=== PATIENT | male | born 1945 | race Caucasian/White ===

== ENCOUNTER 2024-01-22 12:20 | Inpatient (IN) | payer OTHER ==
[~2024-01-22] VITALS: Ht 177.8 cm; Wt 92.4 kg
[2024-01-22] VITALS (21 sets, daily range): BP systolic 93–125; BP diastolic 41–68; PULSE 24–82; RESP 16–26; O2SAT 85–98
[~2024-01-22 12:20] MED LIST: AMLO1TAB22 PO; APIX5TAB PO; ATOR-507 PO; BUSP5TAB51 PO; FAMO-12 PO; FURO20TA3 PO; ISOS10TA2 PO; LOSA-534 PO; RANO500T3 PO; TAMS0.4C39 PO; TRAM50TA2 PO; VENL1TAB97 PO
[2024-01-22] MEDS: ATROPINE SULF 1 MG/10ml SYR IV ONE (12:35)
[2024-01-22] MEDS: DOPamine 1600MCG/ML D5W 250 ML IV SCH ×2 (12:43→16:05)
[2024-01-22] MEDS: SODIUM CHLORIDE 0.9% 1,000 ML IV ONE (12:45)
[2024-01-22] MEDS: fentaNYL CITRATE 100 MCG/2 ML VL IV ONE (13:06)
[2024-01-22 13:32] LABS: Basophils # (auto) 0.1 10 ^3/uL (0-0.2); Basophils % (auto) 0.5 % (0.0-2.0); Eosinophils # (auto) 0.2 10 ^3/uL (0-0.8); Eosinophils % (auto) 1.7 % (0.0-7.0); Hemoglobin 12.3 g/dL (13.5-17.5); Lymphocytes # (auto) 1.5 10 ^3/uL (0.4-5.4); Lymphocytes % (auto) 11.9 % (10.0-50.0); Mean Corpuscular Hemoglobin 32.5 pg (28.0-32.0); Mean Corpuscular Hgb Conc. 33.3 g/dL (32.0-36.0); Mean Corpuscular Volume 97.5 fL (80.0-100.0); Monocytes # (auto) 1.7 10 ^3/uL (0-1.3); Neutrophils # (auto) 9.4 10 ^3/uL (1.6-8.6); Neutrophils % (auto) 72.9 % (37.0-80.0); Nucleated Red Blood Cells % 0.2 %; Platelet Count (auto) 244 10^3/uL (140-450); Red Blood Cells 3.79 10^6/uL (4.5-5.90); White Blood Cell 12.9 10^3/uL (4.4-10.8)
[2024-01-22 13:49] LABS: Alanine Aminotransferase 83 U/L (7-40); Albumin 3.9 g/dL (3.2-4.8); Alkaline Phosphatase 132 U/L (46-116); Anion Gap 8 (5-15); Aspartate Aminotransferase 43 U/L (13-40); BUN/Creatinine Ratio 31.5 (10.0-20.0); Blood Urea Nitrogen 58 mg/dL (9-23); Calcium 9.3 mg/dL (8.7-10.4); Carbon Dioxide 18 mmol/L (20-31); Chloride 115 mmol/L (98-107); Glucose 154 mg/dL (74-106); Potassium 4.6 mmol/L (3.5-5.1); Sodium 141 mmol/L (136-145)
[2024-01-22 13:50] LABS: Bilirubin, Total 0.7 mg/dL (0.2-1.0); Total Protein 6.4 g/dL (5.7-8.2)
[2024-01-22] MEDS: fentaNYL CITRATE 100 MCG/2 ML VL ONE (13:54)
[2024-01-22] MEDS: ATROPINE SULF 1 MG/10ml SYR ONE (13:54)
[2024-01-22] MEDS: DOPamine 1600MCG/ML D5W 250 ML IV ONE (13:54)
[2024-01-22] MEDS: ATROPINE SULF 0.5 MG/5ML SYR ONE (13:54)
[2024-01-22] MEDS: diphenhdrAMINE HCL 50 MG/1 ML VL IV ONE (14:32)
[2024-01-22] MEDS: ceFAZolin 1GM/50ML 50 ML IV SCH ×2 (14:42→16:07)
[2024-01-22] MEDS ORDERED: NITROGLYCERIN 0.4 MG SL TAB SL PRN ×2 (15:30→16:15)
[2024-01-22] MEDS ORDERED: ACETAMINOPHEN 325 MG TAB PO PRN ×2 (15:30→16:15)
[2024-01-22] MEDS ORDERED: TEMAZEPAM 15 MG CAP PO PRN (15:30)
[2024-01-22] MEDS ORDERED: ONDANSETRON HCL 4 MG/2 ML VIAL IV PRN (15:30)
[2024-01-22] MEDS ORDERED: MORPHINE SULFATE INJ 2 MG/ml SYRG IV PRN ×3 (15:30→16:15)
[2024-01-22] MEDS ORDERED: HYDROcodone-ACET 5/325MG TAB PO PRN ×2 (15:30→16:15)
[2024-01-22 15:34] LABS: INR 1.39 (0.9-1.15); Partial Thromboplastin Time 31.3 SEC (24.5-34.5); Prothrombin Time 14.4 sec (9.3-11.8)
[2024-01-22 15:54] LABS: Magnesium 2.4 mg/dL (1.6-2.6)
[2024-01-22 15:56] LABS: Phosphorus 3.9 mg/dL (2.4-5.1)
[2024-01-22] MEDS: ONDANSETRON HCL 4 MG/2 ML VIAL IV PRN (16:19)
[2024-01-22] MEDS: MORPHINE SULFATE INJ 2 MG/ml SYRG IV PRN (16:20)
[2024-01-22] MEDS: FUROSEMIDE 40 MG/4 ML VIAL IV SCH (17:34)
[2024-01-22] MEDS ORDERED: FUROSEMIDE 40 MG/4 ML VIAL IV SCH (18:00)
[2024-01-22 18:59] LABS: Amphetamine Screen, Urine Neg (NEGATIVE); Barbiturate Scree,Urine Neg (NEGATIVE); Benzodiazephine Screen, Urine Neg (NEGATIVE)
[2024-01-22 19:00] LABS: Cannabinoid Screen, Urine Neg (NEGATIVE); Cocaine Screen, Urine Neg (NEGATIVE); Opiate Scree,Urine Neg (NEGATIVE); Phencyclidine Screen, Urine Neg (NEGATIVE)
[2024-01-22 19:16] LABS: Urine Bacteria FEW /hpf (None Seen); Urine Blood Negative /uL (Negative); Urine Clarity Turbid (Clear); Urine Color Light-Yellow (Yellow); Urine Hyaline Cast FEW /lpf (0 - 2); Urine Protein, UAD TRACE (Negative); Urine Specific Gravity 1.013 (1.001-1.035); Urine Urobilinogen Normal (Negative); Urine WBC 2 /hpf (0 - 3)
[2024-01-23] VITALS (46 sets, daily range): BP systolic 97–136; BP diastolic 38–96; PULSE 42–81; RESP 15–24; TEMP 98–99.2; O2SAT 92–99
[2024-01-23 04:19] LABS: Basophils # (auto) 0.1 10 ^3/uL (0-0.2); Basophils % (auto) 0.7 % (0.0-2.0); Eosinophils # (auto) 0.2 10 ^3/uL (0-0.8); Eosinophils % (auto) 1.6 % (0.0-7.0); Hematocrit 36.7 % (41.0-53.0); Hemoglobin 12.5 g/dL (13.5-17.5); Lymphocytes # (auto) 1.1 10 ^3/uL (0.4-5.4); Lymphocytes % (auto) 8.9 % (10.0-50.0); Mean Corpuscular Hemoglobin 32.8 pg (28.0-32.0); Mean Corpuscular Volume 96.4 fL (80.0-100.0); Monocytes # (auto) 1.4 10 ^3/uL (0-1.3); Monocytes % (auto) 11.3 % (0.0-12.0); Neutrophils # (auto) 9.5 10 ^3/uL (1.6-8.6); Neutrophils % (auto) 77.5 % (37.0-80.0); Nucleated Red Blood Cells % 0.1 %; Platelet Count (auto) 216 10^3/uL (140-450); Red Cell Distribution Width 14.9 % (11.8-14.3); White Blood Cell 12.3 10^3/uL (4.4-10.8)
[2024-01-23 04:43] LABS: Alanine Aminotransferase 67 U/L (7-40); Albumin 3.9 g/dL (3.2-4.8); Alkaline Phosphatase 122 U/L (46-116); Anion Gap 7 (5-15); Aspartate Aminotransferase 29 U/L (13-40); BUN/Creatinine Ratio 22.4 (10.0-20.0); Calcium 9.3 mg/dL (8.7-10.4); Carbon Dioxide 24 mmol/L (20-31); Chloride 114 mmol/L (98-107); Glucose 113 mg/dL (74-106); Potassium 3.9 mmol/L (3.5-5.1); Sodium 145 mmol/L (136-145)
[2024-01-23 04:44] LABS: Bilirubin, Total 0.8 mg/dL (0.2-1.0); Total Protein 6.6 g/dL (5.7-8.2)
[2024-01-23 04:45] LABS: Blood Urea Nitrogen 33 mg/dL (9-23)
[2024-01-23] MEDS: fentaNYL CITRATE 100 MCG/2 ML VL ONE (10:17)
[2024-01-23] MEDS: VANCOMYCIN HCL 1000 MG VL ONE ×2 (10:17→12:23)
[2024-01-23] MEDS: MIDAZOLAM HCL 2MG/2ML 2ml VIAL (1mg/ml) ONE (10:17)
[2024-01-23] MEDS: LIDOCAINE 2%HCL (LOCAL ANESTH.) INJ 20ML MDV ONE ×2 (10:18→11:26)
[2024-01-23] MEDS: VANCOMYCIN 1GM/200ML PREMIX 200 ML IV ONE (10:18)
[2024-01-23] MEDS: IODIXANOL 320MG/ML 100ML BTL IV ONE (10:48)
[2024-01-23] MEDS ORDERED: PNEUMOCOCCAL VACC POLYS 25 MCG/0.5 ML VIAL IM ONE (20:00)
[2024-01-24] VITALS (8 sets, daily range): BP systolic 111–160; BP diastolic 48–72; PULSE 67–77; RESP 18–24; TEMP 97.8–98.4; O2SAT 94–98
[2024-01-24] MEDS: VANCOMYCIN 1GM/200ML PREMIX 200 ML IV SCH (00:43)
[2024-01-24] MEDS: TEMAZEPAM 15 MG CAP PO PRN (01:09)
[2024-01-24] MEDS ORDERED: ACETAMINOPHEN 325 MG TAB PO PRN (10:30)
[2024-01-24] MEDS ORDERED: HYDROcodone-ACET 5/325MG TAB PO PRN (10:30)
[2024-01-24] MEDS: DOXYCYCLINE 100 MG TAB/CAP PO ONE (11:29)
[2024-01-24 12:02] LABS: Basophils # (auto) 0 10 ^3/uL (0-0.2); Basophils % (auto) 0.4 % (0.0-2.0); Eosinophils # (auto) 0.2 10 ^3/uL (0-0.8); Hematocrit 38.6 % (41.0-53.0); Hemoglobin 12.9 g/dL (13.5-17.5); Lymphocytes # (auto) 1.4 10 ^3/uL (0.4-5.4); Lymphocytes % (auto) 13.2 % (10.0-50.0); Mean Corpuscular Hemoglobin 32.5 pg (28.0-32.0); Mean Corpuscular Hgb Conc. 33.5 g/dL (32.0-36.0); Mean Corpuscular Volume 96.9 fL (80.0-100.0); Monocytes # (auto) 1.5 10 ^3/uL (0-1.3); Monocytes % (auto) 13.6 % (0.0-12.0); Neutrophils # (auto) 7.8 10 ^3/uL (1.6-8.6); Neutrophils % (auto) 70.8 % (37.0-80.0); Platelet Count (auto) 213 10^3/uL (140-450); Red Blood Cells 3.98 10^6/uL (4.5-5.90); Red Cell Distribution Width 15.7 % (11.8-14.3)
[2024-01-24 12:33] LABS: Alanine Aminotransferase 66 U/L (7-40); Alkaline Phosphatase 122 U/L (46-116); Anion Gap 8 (5-15); Aspartate Aminotransferase 39 U/L (13-40); BUN/Creatinine Ratio 21.5 (10.0-20.0); Blood Urea Nitrogen 28 mg/dL (9-23); Calcium 9.6 mg/dL (8.7-10.4); Carbon Dioxide 28 mmol/L (20-31); Chloride 109 mmol/L (98-107); Glucose 130 mg/dL (74-106); Magnesium 1.9 mg/dL (1.6-2.6); Potassium 3.8 mmol/L (3.5-5.1); Sodium 145 mmol/L (136-145)
[2024-01-24 12:34] LABS: Phosphorus 2.9 mg/dL (2.4-5.1); Total Protein 6.9 g/dL (5.7-8.2)
[2024-01-24] MEDS: HYDROcodone-ACET 10/325MG TAB PO PRN (15:55)
[2024-01-24 16:34] LABS: Phosphorus 2.8 mg/dL (2.4-5.1)
[2024-01-24] MEDS: FUROSEMIDE 40 MG TAB PO SCH (18:36)
[2024-01-24] MEDS: DOXYCYCLINE 100 MG TAB/CAP PO SCH (21:57)
[2024-01-25] VITALS (7 sets, daily range): BP systolic 124–150; BP diastolic 67–81; PULSE 64–71; RESP 18–20; TEMP 98–98.5; O2SAT 99
[2024-01-25 11:33] LABS: Basophils # (auto) 0.1 10 ^3/uL (0-0.2); Basophils % (auto) 0.5 % (0.0-2.0); Eosinophils # (auto) 0.3 10 ^3/uL (0-0.8); Eosinophils % (auto) 2.5 % (0.0-7.0); Hemoglobin 13.4 g/dL (13.5-17.5); Lymphocytes # (auto) 1.4 10 ^3/uL (0.4-5.4); Lymphocytes % (auto) 13.7 % (10.0-50.0); Mean Corpuscular Hemoglobin 32.2 pg (28.0-32.0); Mean Corpuscular Hgb Conc. 33.5 g/dL (32.0-36.0); Mean Corpuscular Volume 96.1 fL (80.0-100.0); Monocytes # (auto) 1.3 10 ^3/uL (0-1.3); Neutrophils # (auto) 7.5 10 ^3/uL (1.6-8.6); Neutrophils % (auto) 71.3 % (37.0-80.0); Platelet Count (auto) 202 10^3/uL (140-450); Red Blood Cells 4.17 10^6/uL (4.5-5.90); Red Cell Distribution Width 15.3 % (11.8-14.3); White Blood Cell 10.5 10^3/uL (4.4-10.8)
[2024-01-25 12:07] LABS: Alanine Aminotransferase 66 U/L (7-40); Albumin 3.9 g/dL (3.2-4.8); Alkaline Phosphatase 115 U/L (46-116); Anion Gap 6 (5-15); Aspartate Aminotransferase 41 U/L (13-40); BUN/Creatinine Ratio 23.3 (10.0-20.0); Blood Urea Nitrogen 24 mg/dL (9-23); Calcium 9.4 mg/dL (8.7-10.4); Carbon Dioxide 31 mmol/L (20-31); Chloride 106 mmol/L (98-107); Glucose 129 mg/dL (74-106); Potassium 3.6 mmol/L (3.5-5.1); Sodium 143 mmol/L (136-145)
[2024-01-25 12:09] LABS: Bilirubin, Total 1.1 mg/dL (0.2-1.0); Total Protein 6.7 g/dL (5.7-8.2)
[2024-01-25 12:20] LABS: Hepatitis B Surface Antigen Negative (Negative)
[2024-01-25 12:41] LABS: Hepatitis C Antibody Negative (Negative)
== END 2024-01-25 19:20 | DRG 242 ==
LOC: EDUNIT# 12:20 → EDBD 12:20 → ER 12:25 → TELE 15:21 → ER 15:23 → TELE-WESTW 01-23 18:00
PROVIDERS: ADMIT Student in an Organized Health Care Education/Training Program; ATTEND Student in an Organized Health Care Education/Training Program
PROC: 0JH606Z Insertion of Pacemaker, Dual Chamber into Chest Subcutaneous Tissue and Fascia, Open Approach (ICD-10-PCS; principal; 2024-01-23)
PROC: 02H63JZ Insertion of Pacemaker Lead into Right Atrium, Percutaneous Approach (ICD-10-PCS; 2024-01-23)
PROC: 02HK3JZ Insertion of Pacemaker Lead into Right Ventricle, Percutaneous Approach (ICD-10-PCS; 2024-01-23)
PROC: B5171ZZ Fluoroscopy of Left Subclavian Vein using Low Osmolar Contrast (ICD-10-PCS; 2024-01-23)
PROC: B51N1ZZ Fluoroscopy of Left Upper Extremity Veins using Low Osmolar Contrast (ICD-10-PCS; 2024-01-23)
DX: I44.2 Atrioventricular block, complete (principal); I50.21 Acute systolic (congestive) heart failure; J96.00 Acute respiratory failure, unspecified whether with hypoxia or hypercapnia; N17.9 Acute kidney failure, unspecified; I13.0 Hypertensive heart and chronic kidney disease with heart failure and stage 1 through stage 4 chronic kidney disease, or unspecified chronic kidney disease; F03.90 Unspecified dementia, unspecified severity, without behavioral disturbance, psychotic disturbance, mood disturbance, and anxiety; N40.0 Benign prostatic hyperplasia without lower urinary tract symptoms; J44.9 Chronic obstructive pulmonary disease, unspecified; I35.0 Nonrheumatic aortic (valve) stenosis; N18.9 Chronic kidney disease, unspecified; F10.10 Alcohol abuse, uncomplicated; Z95.2 Presence of prosthetic heart valve; Z86.74 Personal history of sudden cardiac arrest; Z87.891 Personal history of nicotine dependence; Y90.9 Presence of alcohol in blood, level not specified
CPT/HCPCS: 33208; 36415; 36556; 71045; 76775; 80053; 80061; 80307; 81001; 82140; 82306; 82607; 83036; 83605; 83735; 83880; 83970; 84100; 84443; 84484; 85025; 85610; 85730; 86803; 87040; 87340; 93005; 93306; 96361; 96365; 96375; 97110; 97116; 97163; 99152; 99291; 99292; G0378; J0461; J2250; J2405; Q9967

== ENCOUNTER 2024-10-02 00:44 | Emergency (ER) | payer OTHER ==
[~2024-10-02] VITALS: Ht 175.3 cm; Wt 90.9 kg
[2024-10-02 01:20] LABS: Chloride 106 mmol/L (98-107); Potassium 4.3 mmol/L (3.5-5.1); Sodium 140 mmol/L (136-145)
[2024-10-02 01:21] LABS: Anion Gap 8 (5-15); Calcium 9.2 mg/dL (8.7-10.4); Carbon Dioxide 26 mmol/L (20-31)
[2024-10-02 01:25] LABS: Hematocrit 45.6 % (41.0-53.0); Hemoglobin 15.5 g/dL (13.5-17.5); Mean Corpuscular Hemoglobin 32.3 pg (28.0-32.0); Mean Corpuscular Volume 95.1 fL (80.0-100.0); Nucleated Red Blood Cells % 0.0 %
[2024-10-02 01:26] LABS: BUN/Creatinine Ratio 18.5 (10.0-20.0); Blood Urea Nitrogen 20 mg/dL (9-23)
[2024-10-02 01:31] LABS: Glucose 130 mg/dL (74-106)
--- NOTE | 2024-10-02 01:40 | DVH ---
CHEST RADIOGRAPH Indication: chest pain Technique: Single frontal view of the chest was obtained COMPARISON: XY CHEST XRAY 1 VIEW on DOS: 01/24/24, XY CHEST PORTABLE on DOS: 01/23/24, XY CHEST XRAY 1 VIEW on DOS: 01/23/24, XY CHEST PORTABLE on DOS: 01/22/24 FINDINGS: Lines and Tubes: None. Left anterior chest wall dual lead cardiac pacing device. Lungs: Clear. Moderate right hemidiaphragmatic elevation. Pleura: No effusion. No pneumothorax. Cardiomediastinal contours: Cardiomegaly. Bones: Unremarkable. Hardware within the cervical spine and right glenohumeral joint. IMPRESSION: 1. No acute disease. Cardiomegaly.
--- NOTE | 2024-10-02 01:50 | ED.PDOC ---
History of Present Illness HPI Comments 79 y/o M is BIBA for 4x hour history of nonradiating, left sided chest pain. Per EMS report, patient endorses on sudden and unprovoked onset of constant, 8/10 pain, last night. Significant history of aortic stenosis s/p TAVR, acute respiratory failure, JYOTI, CHF, COPD, complete heart block, pulmonary hyperten jovanna, pacemaker, and PTCA. Patient was given ASA and NTG en route, with improvement of pain to a 4/10. Patient denies any shortness of breath, nausea, vomiting, dizziness, arm pain, fever, chills, or further associated symptoms. Chief Complaint: Chest Pain Time Seen by MD: 00:50 Reviewed Notes: Nurses Notes, Dispatch Associate Notes, Medications, Allergies Allergies: Coded Allergies: NO KNOWN ALLERGIES (Unverified , 01/22/24) Home Meds Reported Medications Tramadol Hcl (Tramadol Hcl) 50 Mg Tab, 1 TAB PO Q8HR for 30 Days, #90 01/23/24 Losartan Potassium (Losartan Potassium) 50 Mg Tab, 1 TAB PO DAILY for 100 Days, #100 01/23/24 Buspirone Hcl (Buspirone Hcl) 5 Mg Tab, 1 TAB PO BID for 90 Days, #180 01/23/24 Venlafaxine Hydrochloride (Venlafaxine Hcl) 37.5 Mg Tab, 1 TAB PO BID for 100 Days, #200 01/23/24 Furosemide (Furosemide) 20 Mg Tab, 1 TAB PO DAILY for 100 Days, #100 01/23/24 Amlodipine Besylate (Amlodipine Besylate) 5 Mg Tab, 1 TAB PO DAILY for 100 Days, #100 01/23/24 Apixaban Base (ELIQUIS) 5 Mg Tab, 1 TAB PO BID for 30 Days, #60 01/23/24 Ranolazine (Ranolazine ER) 500 Mg Tab, 1 TAB PO BID for 100 Days, #200 01/23/24 Tamsulosin Hcl (Tamsulosin Hcl) 0.4 Mg Cap, 1 CAP PO DAILY for 100 Days, #100 01/23/24 Isosorbide Dinitrate (Isosorbide Dinitrate) 10 Mg Tab, 1 TAB PO DAILY for 90 Days, #90 01/23/24 Famotidine (Famotidine) 20 Mg Tab, 1 TAB PO BID for 30 Days, #60 01/23/24 Atorvastatin Calcium (Lipitor) 40 Mg Tab, 1 TAB PO DAILY for 100 Days, #100 01/23/24 Information Source: Patient, Emergency Med Personnel Mode of Arrival: Ambulatory Severity: Moderate Timing: Hours Duration: Since onset Prehospital treatment: 12 Lead EKG, ASA, Power Regulator, NTG Past Medical History PAST MEDICAL HISTORY: CHF, COPD Past Medical History (Other): aortic stenosis s/p TAVR acute respiratory failure JYOTI, complete heart block pulmonary hypertension Surgical History: Pacemaker, PTCA Family History Family History: Unknown Social History Smoker: Non-Smoker Alcohol: Denies ETOH Use Drugs: Denies Drug Use Lives In: Home All Other Systems: Reviewed and Negative (Comprehensive systems review obtained and negative except for what is stated in the HPI.) Physical Exam General Appearance: No Apparent Distress, Normal, Other (ill appearing ) HEENT: Normal ENT Inspection, Pharynx Normal, TMs Normal Neck: Full Range of Motion, Non-Tender, Normal, Normal Inspection Respiratory: Chest Non-Tender, Lungs Clear, No Accessory Muscle Use, No Respiratory Distress, Normal Breath Sounds Cardiovascular: No Edema, No JVD, No Murmur, No Gallop, Normal Peripheral Pulses, Regular Rate/Rhythm Breast Exam: Deferred Gastrointestinal: No Organomegaly, Non Tender, No Pulsatile Mass, Normal Bowel Sounds, Soft Genitalia: Deferred Pelvic: Deferred Rectal: Deferred Extremities: No calf tenderness, Normal capillary refill, Normal inspection, Normal range of motion, Non-tender, No pedal edema Musculoskeletal : Apperance: Normal Neurologic: Alert, flatwork washer II-XII nml as Tested, No Motor Deficits, Normal Affect, Normal Mood, No Sensory Deficits Cerebellar Function: Normal Reflexes: Normal Skin: Dry, Normal Color, Warm Lymphatic: No Adenopathy Was a procedure done? Was a procedure done?: No EKG EKG : Pulse Rate (adult): 92 [place]: Normal Cardiac Rhythm: Paced (ventricularly) Block: None Hypertrophy: None ST: Normal Differential Dx Considerations may include: [place], PE, ACS, URI, PNA, viral syndrome, among others X-Ray, Labs, Meds, VS Vital Signs Date Time Temp Pulse Resp B/P (MAP) Pulse Ox O2 Delivery O2 Flow Rate FiO2 10/02/24 01:50 92 10/02/24 01:39 70 10/02/24 01:00 98.4 90 18 123/74 (90) 95 98.4 10/02/24 00:47 70 Lab Test 10/02/24 02:06 10/02/24 01:01 Range/Units Troponin I High Sensitivity Pending 46 </=54 ng/L White Blood Count 8.7 4.4-10.8 10^3/uL Red Blood Count 4.79 4.5-5.90 10^6/uL Hemoglobin 15.5 13.5-17.5 g/dL Hematocrit 45.6 41.0-53.0 % Mean Corpuscular Volume 95.1 80.0-100.0 fL Mean Corpuscular Hemoglobin 32.3 H 28.0-32.0 pg Mean Corpuscular Hemoglobin Concent 34.0 32.0-36.0 g/dL Red Cell Distribution Width 13.8 11.8-14.3 % Platelet Count 168 140-450 10^3/uL Mean Platelet Volume 7.5 6.9-10.8 fL Neutrophils (%) (Auto) 56.9 37.0-80.0 % Lymphocytes (%) (Auto) 25.6 10.0-50.0 % Monocytes (%) (Auto) 13.2 H 0.0-12.0 % Eosinophils (%) (Auto) 3.3 0.0-7.0 % Basophils (%) (Auto) 1.0 0.0-2.0 % Neutrophils # (Auto) 5.0 1.6-8.6 10 ^3/uL Lymphocytes # (Auto) 2.2 0.4-5.4 10 ^3/uL Monocytes # (Auto) 1.1 0-1.3 10 ^3/uL Eosinophils # (Auto) 0.3 0-0.8 10 ^3/uL Basophils # (Auto) 0.1 0-0.2 10 ^3/uL Nucleated Red Blood Cells 0.0 % Sodium Level 140 136-145 mmol/L Potassium Level 4.3 3.5-5.1 mmol/L Chloride Level 106 98-107 mmol/L Carbon Dioxide Level 26 20-31 mmol/L Anion Gap 8 5-15 Blood Urea Nitrogen 20 9-23 mg/dL Creatinine 1.08 0.700-1.30 mg/dL Glomerular Filtration Rate Calc 69 >90 mL/min BUN/Creatinine Ratio 18.5 10.0-20.0 Serum Glucose 130 H 74-106 mg/dL Calcium Level 9.2 8.7-10.4 mg/dL B-Type Natriuretic Peptide 311.03 0-100 pg/mL [address] [address] Ph: [phone] DIAGNOSTIC IMAGING Diagnostic Imaging Report : [id number] Signed PATIENT: MARIA R ZAPATA ACCT: [id number] UNIT: [id number] : 1945 LOC: ER ROOM / BED: / AGE / SEX: 79 / M ADM STATUS: REG ER SERVICE ORDERING PHYSICIAN: CRISTIAN ALBRECHT MD PROCEDURE(s): CXRP - CHEST PORTABLE REASON: chest pain ORDER NUMBER(s): [id number], ACCESSION NUMBER(s): [id number] CHEST RADIOGRAPH Indication: chest pain Technique: Single frontal view of the chest was obtained COMPARISON: XY CHEST XRAY 1 VIEW on DOS: 01/24/24, XY CHEST PORTABLE on DOS: 01/23/24, XY CHEST XRAY 1 VIEW on DOS: 01/23/24, XY CHEST PORTABLE on DOS: 01/22/24 FINDINGS: Lines and Tubes: None. Left anterior chest wall dual lead cardiac pacing device. Lungs: Clear. Moderate right hemidiaphragmatic elevation. Pleura: No effusion. No pneumothorax. Cardiomediastinal contours: Cardiomegaly. Bones: Unremarkable. Hardware within the cervical spine and right glenohumeral joint. IMPRESSION: 1. No acute disease. Cardiomegaly. ATED BY: OSEI BROWN MD DICTATED DATE/TIME: 10/02/24136 SIGNED BY: OSEI BROWN MD SIGNED DATE/TIME: 10/02/24136 CC: Time of 1ST Reevaluation: 01:20 Reevaluation 1ST: Unchanged Patient Education/Counseling: Diagnosis, Treatment Family Education/Counseling: No Family Present Additional Information Previous visits reviewed: January 21, 2025 encounter for heart block The following tests were ordered, and results were reviewed by me: CXR, EKG, CBC, BNP, BMP, troponin Additional Information was gathered from interviewing the following independent historians: EMS I reviewed and agreed with the following test results read by other providers: CXR I discussed treatment and results with medical personnel and: patient SEPSIS Sepsis Screen Date sepsis recognized/suspect: Oct 02, 2024 Time Sepsis recognized/suspect: 010 Recent Procedure: No On Antibiotic Therapy: No Respiratory Rate >20: No Heart Rate >90: No Temp<36 C (96.8 F) or >38.3 C: No SBP <90 or MAP <65 mmHG: No New Acute Mental Status Change: No Is the patient on CPAP, BIPAP,: No Physician Orders Chest Portable (10/02/24 00:55) Electrocardigram (10/02/24 00:55) Troponin-I Hs (10/02/24 01:55) Troponin-I Hs (10/02/24 03:55) Electrocardigram (10/02/24 01:55) Electrocardigram (10/02/24 03:55) Vital Signs Date Time Temp Pulse Resp B/P (MAP) Pulse Ox O2 Delivery O2 Flow Rate FiO2 10/02/24 01:50 92 10/02/24 01:39 70 10/02/24 01:00 98.4 90 18 123/74 (90) 95 98.4 10/02/24 00:47 70 Laboratory Tests Test 10/02/24 01:01 White Blood Count 8.7 10^3/uL (4.4-10.8) Departure 1 Departure Time of Disposition: 02:38 (Patient presented with chest pain that was concerning for possible STEMI, ACS, PE, Pneumonia, Muscle Strain, COPD, Dissection. Data: 1. I ordered and reviewed the result of at least 3 labs including a CBC, BMP, and Troponin. 2. I independently interpreted the following tests: EKG which shows paced rhythm and Chest X-ray which shows benign chest.Risk:This patient has a high risk of morbidity due to further diagnostic testing or treatment and may suffer from an acute cardiac or respiratory disorder. Workup reveals concern for ACS and patient should be admitted for further workup and possible expert consultation. ) Impression: Primary Impression: Acute chest pain Disposition: ADMITTED INPATIENT Admit to: Med Surg Condition: Guarded Critical Care Note Critical Care Time?: Yes Critical care comment: Acute chest pain Authorized and Performed by: Cristian Albrecht MD Total critical care time: Approximately 38 minutes Due to a high probability of clinically significant, life threatening deterioration, the patient required my highest level of preparedness to interve ne emergently and I personally spent this critical care time directly and personally managing the patient. This critical care time included obtaining a history; examining the patient; pulse oximetry; ordering and review of studies; arranging urgent treatment with development of a management plan; evaluation of patient's response to treatment; frequent reassessment; and, discussions with other providers. This critical care time was performed to assess and manage the high probability of imminent, life-threatening deterioration that could result in multi-organ failure. It was exclusive of separately billable procedures and treating other patients and teaching time. Please see my other sections and the rest of the note for further information on patient assessment and treatment. Stability Stability form required: No Heart Score Heart Score: Heart Score Response (Comments) Value History Moderate Suspicious 1 EKG Normal 0 Age >65 2 Risk Factors >3 or Hx ASHD 2 Troponin Normal limit 0 Total 5 I personally scribed for CRISTIAN ALBRECHT MD ([email or web address]) on 10/02/24 at 01:50. Electronically submitted by Robert Paez [email or web address]). CRISTIAN ALBRECHT MD Oct 02, 2024 01:50
[2024-10-02] MEDS: NITROGLYCERIN 0.4 MG SL TAB SL ONE (03:33)
[2024-10-02] MEDS: SODIUM CHLORIDE 0.9% 1,000 ML IV ONE ×2 (04:00→04:41)
[2024-10-02] MEDS: MAALOX PLUS or MAALOX 30 ML PO ONE (04:15)
[2024-10-02] MEDS: ISOSORBIDE DINITRATE 10 MG TAB PO ONE (05:43)
--- NOTE | 2024-10-02 06:15 | ECG ---
[facility] Test Date: 2024-10-02 Test Time: 03:46:13 Pat Name: MARIA R ZAPATA Department: ED Room: Gender: M Programming Engineer: ANITA : 1945 Requested By: CRISTIAN MENESES Order Number: [id number] Reading MD: Nik Casanova Measurements Intervals [place] Rate: 70 P: 0 RI: 191 QRS: -85 QRSD: 158 T: 84 QT: 442 QTc: 477 Interpretive Statements A-V dual-paced complexes w/ some inhibition No further analysis attempted due to paced rhythm Baseline wander in lead(s) I,III,aVL Electronically Signed On 10-04-2024 9:53:27 PDT by Nik Casanova Please click the below link to view image of tracing.
--- NOTE | 2024-10-02 06:15 | ECG ---
[facility] Test Date: 2024-10-02 Test Time: 01:39:23 Pat Name: MARIA R ZAPATA Department: ED Room: Gender: M Director Sales Training: ANITA : 1945 Requested By: CRISTIAN MENESES Order Number: [id number] Reading MD: Nik Casanova Measurements Intervals [place] Rate: 70 P: 0 CO: 187 QRS: 265 QRSD: 160 T: 69 QT: 461 QTc: 498 Interpretive Statements Atrial-ventricular dual-paced complexes No further rhythm analysis attempted due to paced rhythm Nonspecific IVCD with LAD Electronically Signed On 10-04-2024 9:52:36 PDT by Nik Casanova Please click the below link to view image of tracing.
[2024-10-02 07:38] VITALS: TEMP 98.2
[2024-10-02 08:00] VITALS: PULSE 70; RESP 17; O2SAT 94
--- NOTE | 2024-10-02 08:29 | ECG ---
[facility] Test Date: 2024-10-02 Test Time: 00:47:05 Pat Name: MARIA R ZAPATA Department: ED Room: Gender: M All Terrain Vehicle Technician: kathy : 1945 Requested By: CRISTIAN MENESES Order Number: [id number] Reading MD: Nik Casanova Measurements Intervals [place] Rate: 70 P: -3 FL: 192 QRS: -83 QRSD: 163 T: 87 QT: 461 QTc: 498 Interpretive Statements Sinus rhythm Nonspecific IVCD with LAD LVH with secondary repolarization abnormality Inferior infarct, acute (RCA) Anterolateral infarct, old Probable RV involvement, suggest recording right precordial leads Electronically Signed On 10-04-2024 9:52:05 PDT by Nik Casanova Please click the below link to view image of tracing.
[2024-10-02] MEDS: FUROSEMIDE 20 MG/2 ML VIAL IV ONE (08:57)
[2024-10-02] MEDS: ONDANSETRON HCL 4 MG/2 ML VIAL IV PRN (08:58)
[2024-10-02] MEDS: RANOLAZINE ER 500 MG TAB PO SCH (09:01)
[2024-10-02] MEDS: MORPHINE SULFATE INJ 2 MG/ml SYRG IV PRN (09:04)
[2024-10-02] MEDS: HYDROcodone-ACET 10/325MG TAB PO ONE (10:25)
[2024-10-02] MEDS: FAMOTIDINE (10MG/ML) 2ML VL IV ONE (10:25)
[2024-10-02 17:00] VITALS: BP 141/66; PULSE 70; RESP 18; O2SAT 96
[2024-10-02] MEDS ORDERED: TRAM50TA2 PO (17:15)
--- NOTE | 2024-10-02 17:16 | DVHDS2 ---
Discharge Summary Date of Admission Date of Discharge: Oct 02, 2024 Labs/Diagnostic Data: Laboratory Results Test 10/02/24 04:06 10/02/24 01:01 Troponin I High Sensitivity 45 ng/L (</=54) White Blood Count 8.7 10^3/uL (4.4-10.8) Red Blood Count 4.79 10^6/uL (4.5-5.90) Hemoglobin 15.5 g/dL (13.5-17.5) Hematocrit 45.6 % (41.0-53.0) Mean Corpuscular Volume 95.1 fL (80.0-100.0) Mean Corpuscular Hemoglobin 32.3 pg (28.0-32.0) Mean Corpuscular Hemoglobin Concent 34.0 g/dL (32.0-36.0) Red Cell Distribution Width 13.8 % (11.8-14.3) Platelet Count 168 10^3/uL (140-450) Mean Platelet Volume 7.5 fL (6.9-10.8) Neutrophils (%) (Auto) 56.9 % (37.0-80.0) Lymphocytes (%) (Auto) 25.6 % (10.0-50.0) Monocytes (%) (Auto) 13.2 % (0.0-12.0) Eosinophils (%) (Auto) 3.3 % (0.0-7.0) Basophils (%) (Auto) 1.0 % (0.0-2.0) Neutrophils # (Auto) 5.0 10 ^3/uL (1.6-8.6) Lymphocytes # (Auto) 2.2 10 ^3/uL (0.4-5.4) Monocytes # (Auto) 1.1 10 ^3/uL (0-1.3) Eosinophils # (Auto) 0.3 10 ^3/uL (0-0.8) Basophils # (Auto) 0.1 10 ^3/uL (0-0.2) Nucleated Red Blood Cells 0.0 % Sodium Level 140 mmol/L (136-145) Potassium Level 4.3 mmol/L (3.5-5.1) Chloride Level 106 mmol/L (98-107) Carbon Dioxide Level 26 mmol/L (20-31) Anion Gap 8 (5-15) Blood Urea Nitrogen 20 mg/dL (9-23) Creatinine 1.08 mg/dL (0.700-1.30) Glomerular Filtration Rate Calc 69 mL/min (>90) BUN/Creatinine Ratio 18.5 (10.0-20.0) Serum Glucose 130 mg/dL (74-106) Calcium Level 9.2 mg/dL (8.7-10.4) B-Type Natriuretic Peptide 311.03 pg/mL (0-100) Other Laboratory Tests 10/02/24 01:01 Final Diagnosis/Problems List Musculoskeletal Chest Pain Discharge Disposition: Home Discharge Instruct/Medications Diet: Cardiac 2g Na,low cholest Activity: No Restrictions, As Tolerated Medications: Tramadol refilled for pain. Follow up with pain management for further medications. Scheduled Amlodipine Besylate (Amlodipine Besylate), 1 TAB PO DAILY, (Reported) Apixaban Base (Eliquis), 1 TAB PO BID, (Reported) Atorvastatin Calcium (Lipitor), 1 TAB PO DAILY, (Reported) Buspirone Hcl (Buspirone Hcl), 1 TAB PO BID, (Reported) Famotidine (Famotidine), 1 TAB PO BID, (Reported) Furosemide (Furosemide), 1 TAB PO DAILY, (Reported) Isosorbide Dinitrate (Isosorbide Dinitrate), 1 TAB PO DAILY, (Reported) Losartan Potassium (Losartan Potassium), 1 TAB PO DAILY, (Reported) Ranolazine (Ranolazine ER), 1 TAB PO BID, (Reported) Tamsulosin Hcl (Tamsulosin Hcl), 1 CAP PO DAILY, (Reported) Tramadol Hcl (Tramadol Hcl), 1 TAB PO Q8HR, (Reported) Venlafaxine Hydrochloride (Venlafaxine Hcl), 1 TAB PO BID, (Reported) Scheduled PRN Tramadol Hcl (Tramadol Hcl), 50 MG PO Q6HP PRN Discharge Statement: "Patient was advised to return to the ER or call 911 if any headaches, dizziness, shortness of breath, chest pain, abdominal pain, bleeding, fevers, or worsening of medical condition. Patient was counseled about treatment plan, medications, possible side effects, patientverbalized understanding. All questions were answered to the best of my ability. This discharge took greater then 30 minutes in planning, reviewing documentation, counseling the patient, and discussing with other team members." ASSESSMENT ASSESSMENT Assessment Musculoskeletal Chest Pain BETTINA ODELL DO Oct 02, 2024 17:16
--- NOTE | 2024-10-02 22:12 | DVHINCON2 ---
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 Per EMS report, patient endorses on sudden and unprovoked onset of constant, 8/10 pain, last night. Patient was given Aspirin and Nitro en route, with improvement of pain to a 4/10. Troponin 46 > 44 > 45. Chest x-ray shows cardiomegaly. EKG shows ventricularly paced rhythm at 92. Patient was admitted to the hospital. I am asked to consult on this patient. Family History: FH: dementia G8 MOTHER, Onset:Unknown G8 SISTER, Onset:Unknown FH: heart attack G8 FATHER, Onset:Unknown G8 BROTHER, Onset:Unknown Allergies: Coded Allergies: NO KNOWN ALLERGIES (Unverified , 01/22/24) Home Meds Active Scripts Tramadol Hcl (Tramadol Hcl) 50 Mg Tab, 50 MG PO Q6HP PRN, #15 TAB 0 Refills Take for severe chest pain. Prov:BETTINA ODELL DO 10/02/24 Reported Medications Tramadol Hcl (Tramadol Hcl) 50 Mg Tab, 1 TAB PO Q8HR for 30 Days, #90 01/23/24 Losartan Potassium (Losartan Potassium) 50 Mg Tab, 1 TAB PO DAILY for 100 Days, #100 01/23/24 Buspirone Hcl (Buspirone Hcl) 5 Mg Tab, 1 TAB PO BID for 90 Days, #180 01/23/24 Venlafaxine Hydrochloride (Venlafaxine Hcl) 37.5 Mg Tab, 1 TAB PO BID for 100 Days, #200 01/23/24 Furosemide (Furosemide) 20 Mg Tab, 1 TAB PO DAILY for 100 Days, #100 01/23/24 Amlodipine Besylate (Amlodipine Besylate) 5 Mg Tab, 1 TAB PO DAILY for 100 Days, #100 01/23/24 Apixaban Base (ELIQUIS) 5 Mg Tab, 1 TAB PO BID for 30 Days, #60 01/23/24 Ranolazine (Ranolazine ER) 500 Mg Tab, 1 TAB PO BID for 100 Days, #200 10/22/24 Tamsulosin Hcl (Tamsulosin Hcl) 0.4 Mg Cap, 1 CAP PO DAILY for 100 Days, #100 01/23/24 Isosorbide Dinitrate (Isosorbide Dinitrate) 10 Mg Tab, 1 TAB PO DAILY for 90 Days, #90 01/23/24 Famotidine (Famotidine) 20 Mg Tab, 1 TAB PO BID for 30 Days, #60 01/23/24 Atorvastatin Calcium (Lipitor) 40 Mg Tab, 1 TAB PO DAILY for 100 Days, #100 01/23/24 Current Medications Current Medications Medications (Trade) Dose Ordered Sig/Michael Route PRN Reason Start Time Stop Time Status Last Admin Morphine Sulfate 2 mg Q4HPRN PRN IV SEVERE PAIN (7-10 PAIN SCALE) 10/02/24 05:00 10/02/24 09:04 Ranolazine (Ranexa ER) 1,000 mg BID PO 10/02/24 10:00 10/02/24 09:01 Ondansetron HCl (Zofran) 4 mg Q4HPRN PRN IV NAUSEA / VOMITING 10/02/24 05:00 10/02/24 08:58 Review of Systems All Other Systems: Reviewed and Negative (Comprehensive systems review obtained and negative except for what is stated in the HPI.) Vital Signs Vital Signs Date Time Temp Pulse Resp B/P (MAP) Pulse Ox O2 Delivery O2 Flow Rate FiO2 10/02/24 12:00 70 10/02/24 10:00 18 142/71 10/02/24 09:00 94 10/02/24 08:00 Room Air* 0 21 10/02/24 07:38 98.2 98.2 Physical Exam GENERAL: Alert and oriented x 3. Ill appearing. EYES: PERRL, EOMI. Anicteric. HENT: Moist mucous membranes. LUNGS: Clear to auscultation bilaterally. CARDIOVASCULAR: Regular rate and rhythm. ABDOMEN: Soft, nontender and nondistended. EXTREMITIES: No edema. NEUROLOGIC: No focal neurological deficits. SKIN: Warm, dry. Labs/Diagnostic Data Labs Test 10/02/24 04:06 10/02/24 01:01 Range/Units Troponin I High Sensitivity 45 </=54 ng/L White Blood Count 8.7 4.4-10.8 10^3/uL Red Blood Count 4.79 4.5-5.90 10^6/uL Hemoglobin 15.5 13.5-17.5 g/dL Hematocrit 45.6 41.0-53.0 % Mean Corpuscular Volume 95.1 80.0-100.0 fL Mean Corpuscular Hemoglobin 32.3 H 28.0-32.0 pg Mean Corpuscular Hemoglobin Concent 34.0 32.0-36.0 g/dL Red Cell Distribution Width 13.8 11.8-14.3 % Platelet Count 168 140-450 10^3/uL Mean Platelet Volume 7.5 6.9-10.8 fL Neutrophils (%) (Auto) 56.9 37.0-80.0 % Lymphocytes (%) (Auto) 25.6 10.0-50.0 % Monocytes (%) (Auto) 13.2 H 0.0-12.0 % Eosinophils (%) (Auto) 3.3 0.0-7.0 % Basophils (%) (Auto) 1.0 0.0-2.0 % Neutrophils # (Auto) 5.0 1.6-8.6 10 ^3/uL Lymphocytes # (Auto) 2.2 0.4-5.4 10 ^3/uL Monocytes # (Auto) 1.1 0-1.3 10 ^3/uL Eosinophils # (Auto) 0.3 0-0.8 10 ^3/uL Basophils # (Auto) 0.1 0-0.2 10 ^3/uL Nucleated Red Blood Cells 0.0 % Sodium Level 140 136-145 mmol/L Potassium Level 4.3 3.5-5.1 mmol/L Chloride Level 106 98-107 mmol/L Carbon Dioxide Level 26 20-31 mmol/L Anion Gap 8 5-15 Blood Urea Nitrogen 20 9-23 mg/dL Creatinine 1.08 0.700-1.30 mg/dL Glomerular Filtration Rate Calc 69 >90 mL/min BUN/Creatinine Ratio 18.5 10.0-20.0 Serum Glucose 130 H 74-106 mg/dL Calcium Level 9.2 8.7-10.4 mg/dL B-Type Natriuretic Peptide 311.03 0-100 pg/mL Assessment Chest pain. Plan/Recommendation I agree with your ongoing assessment and care of plan. Amlodipine. Diuretics with Lasix. Morphine and [facility] for pain management. Additional plan as per the hospital course. A total of 45 minutes was spent reviewing the patient record, examining the patient, making a diagnostic and therapeutic plan, discussing this plan with medical personnel, following up on diagnostic studies and following the patient for clinical stability excluding any and all procedures. At least 50% of this time was spent in direct, [id number] contact. Plan discussed with: Patient IRIS SEGURA MD Oct 02, 2024 16:58
== END 2024-10-02 18:14 | disposition home or self-care (01) ==
LOC: ER 00:44 → EDBD 00:44 → ER 18:14
DX: R07.89 Other chest pain (principal); I50.9 Heart failure, unspecified; J44.9 Chronic obstructive pulmonary disease, unspecified; Z79.899 Other long term (current) drug therapy; Z98.890 Other specified postprocedural states
CPT/HCPCS: 36415; 71045; 80048; 83880; 84484; 85025; 93005; 96374; 96375; 99285; J1940; J2270; J2405; J3490; J7030

== ENCOUNTER 2024-10-09 09:49 | Emergency (ER) | payer OTHER ==
[~2024-10-09] VITALS: Ht 180.3 cm; Wt 108.9 kg
[2024-10-09 10:25] VITALS: TEMP 98.1
--- NOTE | 2024-10-09 10:29 | DVH ---
CHEST RADIOGRAPH Indication: chest pain Technique: Single frontal view of the chest was obtained COMPARISON: XY CHEST PORTABLE on DOS: 10/02/24, XY CHEST XRAY 1 VIEW on DOS: 01/24/24, XY CHEST PORTABL E on DOS: 01/23/24, XY CHEST XRAY 1 VIEW on DOS: 01/23/24, XY CHEST PORTABLE on DOS: 01/22/24 FINDINGS: Lines and Tubes: Left chest pacemaker Lungs: Increased interstitial prominence Pleura: No effusion. No pneumothorax. Cardiomediastinal contours: Cardiomegaly Bones: Unremarkable IMPRESSION: Possible mild pulmonary vascular congestion
[2024-10-09 10:30] VITALS: PULSE 70; RESP 17; O2SAT 100
[2024-10-09 10:39] LABS: Chloride 107 mmol/L (98-107); Potassium 4.3 mmol/L (3.5-5.1); Sodium 143 mmol/L (136-145)
[2024-10-09 10:40] LABS: Anion Gap 8 (5-15); Carbon Dioxide 28 mmol/L (20-31)
[2024-10-09 10:41] LABS: Calcium 10.0 mg/dL (8.7-10.4)
--- NOTE | 2024-10-09 10:41 | ED.PDOC ---
HPI Comments Patient is a 79-year-old male presented to the ED via EMS for chief complaint of chest pain that started overnight. Patient reported last night he was sleep started to have chest pain which woke him up from sleep, was substernal across the whole chest, pressure-like, radiating to both shoulders, [id number] in intensity and continuous, did not improve with the aspirin and nitroglycerin given by the EMS. Patient denied any associated diaphoresis, nausea vomiting, abdominal pain, palpitations or shortness of breath. Patient does report of DBS coronary artery disease status post PCI with a 2-3 stents and has a pacemaker. Patient denied any recent history of surgery, immobilization. According to the EMS patient was saturating around 92% and was put on oxygen support via nasal cannula with a saturation improved to 96% with a 3 L oxygen. Chief Complaint: Chest Pain Time Seen by MD: 10:15 Reviewed Notes: Nurses Notes, Manager Group Notes, Medications, Allergies Allergies: Coded Allergies: NO KNOWN ALLERGIES (Unverified , 01/22/24) Home Meds Active Scripts Tramadol Hcl (Tramadol Hcl) 50 Mg Tab, 50 MG PO Q6HP PRN, #15 TAB 0 Refills Take for severe chest pain. Prov:CASSBETTINA Doe DO 10/02/24 Reported Medications Tramadol Hcl (Tramadol Hcl) 50 Mg Tab, 1 TAB PO Q8HR for 30 Days, #90 01/23/24 Losartan Potassium (Losartan Potassium) 50 Mg Tab, 1 TAB PO DAILY for 100 Days, #100 01/23/24 Buspirone Hcl (Buspirone Hcl) 5 Mg Tab, 1 TAB PO BID for 90 Days, #180 01/23/24 Venlafaxine Hydrochloride (Venlafaxine Hcl) 37.5 Mg Tab, 1 TAB PO BID for 100 Days, #200 01/23/24 Furosemide (Furosemide) 20 Mg Tab, 1 TAB PO DAILY for 100 Days, #100 01/23/24 Amlodipine Besylate (Amlodipine Besylate) 5 Mg Tab, 1 TAB PO DAILY for 100 Days, #100 01/23/24 Apixaban Base (ELIQUIS) 5 Mg Tab, 1 TAB PO BID for 30 Days, #60 01/23/24 Ranolazine (Ranolazine ER) 500 Mg Tab, 1 TAB PO BID for 100 Days, #200 01/23/24 Tamsulosin Hcl (Tamsulosin Hcl) 0.4 Mg Cap, 1 CAP PO DAILY for 100 Days, #100 01/23/24 Isosorbide Dinitrate (Isosorbide Dinitrate) 10 Mg Tab, 1 TAB PO DAILY for 90 Days, #90 01/23/24 Famotidine (Famotidine) 20 Mg Tab, 1 TAB PO BID for 30 Days, #60 01/23/24 Atorvastatin Calcium (Lipitor) 40 Mg Tab, 1 TAB PO DAILY for 100 Days, #100 01/23/24 Information Source: Patient Mode of Arrival: EMS Severity: Moderate, Severe Timing: Hours Duration: Since onset Prehospital treatment: ASA, NTG, Oxygen Location: Substernal Radiation: Shoulder (R), Shoulder (L) Quality: Squeezing, Pressure Onset: At Rest Cardiac Risk Factors: Hyperlipidemia, HTN PE Risk Factors: None History of: Similar pain in past, Angioplasty Associated Signs and Symptoms: None Past Medical History PAST MEDICAL HISTORY: CHF, COPD Surgical History: Pacemaker, PTCA Family History Family History: Unknown Social History Smoker: Non-Smoker Alcohol: Denies ETOH Use Drugs: Denies Drug Use Lives In: Home Constitutional: reports: malaise, weakness EENTM: denies: blurred vision, double vision, ear bleeding, ear discharge, ear drainage, ear pain, ear ringing, eye pain, eye redness, hearing loss, mouth pain, mouth swelling, nasal discharge, nose bleeding, nose congestion, nose pain, photophobia, tearing, throat pain, throat swelling, voice changes, others Respiratory: reports: cough Cardiovascular: reports: chest pain Gastrointestinal: denies: abdomen distended, abdominal pain, blood streaked bowels, constipated, diarrhea, dysphagia, difficulty swallowing, hematemesis, melena, nausea, poor appetite, poor fluid intake, rectal bleeding, rectal pain, vomiting, others Genitourinary: denies: burning, dysuria, flank pain, frequency, hematuria, incontinence, penile discharge, penile sore, pain, testicle pain, testicle swelling, urgency, others Neurological: denies: dizziness, fainting, headache, left sided numbness, left sided weakness, numbness, paresthesia, pre-existing deficit, right sided numbness, right sided weakness, seizure, speech problems, tingling, tremors, weakness, others Musculoskeletal: denies: back pain, gout, joint pain, joint swelling, muscle pain, muscle stiffness, neck pain, others Integumetry: denies: bruises, change in color, change in hair/nails, dryness, laceration, lesions, lumps, rash, wounds, others Allergic/Immunocompromised: denies: Difficulty Healing, Frequent Infections, Hives, Itching, others Hematologic/Lymphatic: denies: anemia, blood clots, easy bleeding, easy bruising, swollen glands, others Endocrine: denies: excessive hunger, excessive sweating, excessive thirst, excessive urination, flushing, intolerance to cold, intolerance to heat, unexplained weight gain, unexplained weight loss, others Psychiatric: denies: anxiety, bipolar disorder, depression, hopeless, panic disorder, schizophrenia, sleepless, suicidal, others Physical Exam General Appearance: Mild Distress, Moderate Distress HEENT: Normal ENT Inspection, Pharynx Normal, TMs Normal Neck: Full Range of Motion, Non-Tender, Normal, Normal Inspection Respiratory: Chest Non-Tender, Lungs Clear, No Accessory Muscle Use, No Respiratory Distress, Normal Breath Sounds Cardiovascular: No Edema, No JVD, No Murmur, No Gallop, Normal Peripheral Pulses, Regular Rate/Rhythm Breast Exam: Deferred Gastrointestinal: No Organomegaly, Non Tender, No Pulsatile Mass, Normal Bowel Sounds, Soft Genitalia: Deferred Pelvic: Deferred Rectal: Deferred Extremities: No calf tenderness, Normal capillary refill, Normal inspection, Normal range of motion, Non-tender, No pedal edema 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 Was a procedure done?: No CP Differential Dx Differential Diagnosis: Other Differential Diagnosis: Angina, Chest Wall Pain, Costochondritis, Esophageal reflux/spasm X-Ray, Labs, Meds, VS Vital Signs Date Time Temp Pulse Resp B/P (MAP) Pulse Ox O2 Delivery O2 Flow Rate FiO2 10/09/24 12:01 70 10/09/24 11:39 75 18 154/77 10/09/24 10:56 72 10/09/24 10:41 70 10/09/24 10:05 98.4 110 18 128/89 (102) 95 98.4 10/09/24 09:56 70 Lab Test 10/09/24 12:59 10/09/24 11:11 10/09/24 10:11 Range/Units Troponin I High Sensitivity Pending 52 24 </=54 ng/L White Blood Count 7.5 4.4-10.8 10^3/uL Red Blood Count 4.85 4.5-5.90 10^6/uL Hemoglobin 15.8 13.5-17.5 g/dL Hematocrit 46.3 41.0-53.0 % Mean Corpuscular Volume 95.5 80.0-100.0 fL Mean Corpuscular Hemoglobin 32.6 H 28.0-32.0 pg Mean Corpuscular Hemoglobin Concent 34.1 32.0-36.0 g/dL Red Cell Distribution Width 13.8 11.8-14.3 % Platelet Count 181 140-450 10^3/uL Mean Platelet Volume 7.5 6.9-10.8 fL Neutrophils (%) (Auto) 60.7 37.0-80.0 % Lymphocytes (%) (Auto) 23.0 10.0-50.0 % Monocytes (%) (Auto) 11.2 0.0-12.0 % Eosinophils (%) (Auto) 4.1 0.0-7.0 % Basophils (%) (Auto) 1.0 0.0-2.0 % Neutrophils # (Auto) 4.5 1.6-8.6 10 ^3/uL Lymphocytes # (Auto) 1.7 0.4-5.4 10 ^3/uL Monocytes # (Auto) 0.8 0-1.3 10 ^3/uL Eosinophils # (Auto) 0.3 0-0.8 10 ^3/uL Basophils # (Auto) 0.1 0-0.2 10 ^3/uL Nucleated Red Blood Cells 0.1 % Sodium Level 143 136-145 mmol/L Potassium Level 4.3 3.5-5.1 mmol/L Chloride Level 107 98-107 mmol/L Carbon Dioxide Level 28 20-31 mmol/L Anion Gap 8 5-15 Blood Urea Nitrogen 16 9-23 mg/dL Creatinine 1.17 0.700-1.30 mg/dL Glomerular Filtration Rate Calc 63 >90 mL/min BUN/Creatinine Ratio 13.7 10.0-20.0 Serum Glucose 112 H 74-106 mg/dL Calcium Level 10.0 8.7-10.4 mg/dL B-Type Natriuretic Peptide 292.62 0-100 pg/mL Current Medications Medications (Trade) Dose Ordered Sig/Michael Route Start Time Stop Time Status Last Admin Morphine Sulfate 2 mg ONCE ONCE IV 10/09/24 10:30 10/09/24 10:46 DC 10/09/24 11:39 Patient is a 79-year-old male came in with a chief complaint of chest pain which started last night and typical for cardiac pain, previous history of coronary artery disease status post PCI with stents, previous history of similar chest pain, initial ECG was done and labs including troponin levels, CBC, BMP and chest x-ray was ordered. Initial 12 lead ECG showed repolarization changes, troponin levels were within normal limits, BNP elevated at 292. Patient reported improvement in the pain with the morphine. Use given 20 mg of IV Lasix. Shortness of breath had improved with the patient currently being on 04/04 2 L oxygen via nasal cannula. Wells score for PE was less than 4 and patient did not have any recent surgery or immobilization, denied calf tenderness. Given significant history of coronary artery disease and similar pain in the past patient will need further inpatient management and he and his agrees with the plan. Time of 1ST Reevaluation: 11:40 Reevaluation 1ST: Unchanged Time of 2ND Reevaluation: 12:58 Reevaluation 2ND: Improved Patient Education/Counseling: Diagnosis, Treatment, Prognosis Family Education/Counseling: Diagnosis, Treatment, Prognosis SEPSIS Sepsis Screen Date sepsis recognized/suspect: Oct 09, 2024 Time Sepsis recognized/suspect: 957 Recent Procedure: No On Antibiotic Therapy: No Respiratory Rate >20: No Heart Rate >90: Yes Temp<36 C (96.8 F) or >38.3 C: No SBP <90 or MAP <65 mmHG: No New Acute Mental Status Change: No Is the patient on CPAP, BIPAP,: No Physician Orders Electrocardigram (10/09/24 10:01) Chest Portable (10/09/24 10:03) Troponin-I Hs (10/09/24 13:03) Electrocardigram (10/09/24 11:03) Electrocardigram (10/09/24 13:03) Vital Signs Date Time Temp Pulse Resp B/P (MAP) Pulse Ox O2 Delivery O2 Flow Rate FiO2 10/09/24 12:01 70 10/09/24 11:39 75 18 154/77 10/09/24 10:56 72 10/09/24 10:41 70 10/09/24 10:05 98.4 110 18 128/89 (102) 95 98.4 10/09/24 09:56 70 Laboratory Tests Test 10/09/24 10:11 White Blood Count 7.5 10^3/uL (4.4-10.8) Medications Medications Dose Ordered Sig/Michael Route Start Time Stop Time Status Last Admin Dose Admin Morphine Sulfate 2 mg ONCE ONCE IV 10/09/24 10:30 10/09/24 10:46 DC 10/09/24 11:39 Departure 1 Departure Time of Disposition: 13:21 Impression: Primary Impression: Chest pain Additional Impressions: Angina pectoris Musculoskeletal chest pain Acute hypoxic respiratory failure Acute exacerbation of congestive heart failure Pulmonary vascular congestion Disposition: ADMITTED INPATIENT Condition: Stable Critical Care Note Critical Care Time?: No Stability Stability form required: No Heart Score Heart Score: Heart Score Response (Comments) Value History Highly Suspicious 2 EKG Repolarization Disturb 1 Age >65 2 Risk Factors >3 or Hx ASHD 2 Troponin Normal limit 0 Total 7 SHARON VENEGAS RESIDENT Oct 09, 2024 10:41
[2024-10-09 10:44] LABS: Hematocrit 46.3 % (41.0-53.0); Hemoglobin 15.8 g/dL (13.5-17.5); Mean Corpuscular Hemoglobin 32.6 pg (28.0-32.0); Mean Corpuscular Volume 95.5 fL (80.0-100.0); Nucleated Red Blood Cells % 0.1 %
[2024-10-09 10:45] LABS: BUN/Creatinine Ratio 13.7 (10.0-20.0); Blood Urea Nitrogen 16 mg/dL (9-23)
[2024-10-09 10:47] LABS: Glucose 112 mg/dL (74-106)
[2024-10-09] MEDS: MORPHINE SULFATE INJ 2 MG/ml SYRG IV ONE (11:39)
[2024-10-09] MEDS: KETOROLAC TROMETH 30 MG/ML 1ML VIAL IV ONE (13:19)
[2024-10-09] MEDS: FUROSEMIDE 20 MG/2 ML VIAL IV ONE (13:19)
[2024-10-09 14:00] VITALS: BP 141/72; PULSE 72; RESP 17; O2SAT 95
--- NOTE | 2024-10-09 15:18 | ECG ---
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
[2024-10-09] MEDS: HYDROcodone-ACET 5/325MG TAB PO ONE (16:02)
--- NOTE | 2024-10-10 10:29 | ECG ---
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
== END 2024-10-09 16:25 | disposition home or self-care (01) ==
LOC: ER 09:49 → EDBD 09:49 → ER 16:25
DX: I20.9 Angina pectoris, unspecified (principal); J96.01 Acute respiratory failure with hypoxia; I50.9 Heart failure, unspecified; J81.1 Chronic pulmonary edema; R07.89 Other chest pain; J44.9 Chronic obstructive pulmonary disease, unspecified; Z79.899 Other long term (current) drug therapy; Z95.0 Presence of cardiac pacemaker
CPT/HCPCS: 36415; 71045; 80048; 83880; 84484; 85025; 93005; 96374; 96375; 99285; J1885; J1940; J2270